=== PATIENT | male | born 1980 | race Caucasian/White ===

== ENCOUNTER 2020-04-19 10:00 | Emergency (ER) | payer MEDICAID ==
[~2020-04-19] VITALS: Ht 177.8 cm; Wt 70.5 kg
[2020-04-19] MEDS ORDERED: DOXYCYCLINE 100MG CAPSULE PO STA (10:42)
[2020-04-19] MEDS ORDERED: CefTRIAXone 1000mg IM Kit (w/lidocaine diluent) IM ONE (10:45)
[2020-04-19] MEDS ORDERED: DOXY100C43 PO (10:45)
[2020-04-19 11:46] VITALS: BP 126/82
== END 2020-04-19 11:48 | disposition home or self-care (01) ==
LOC: ER 10:01
DX: Z02.89 Encounter for other administrative examinations (principal); Z20.2 Contact with and (suspected) exposure to infections with a predominantly sexual mode of transmission; F17.200 Nicotine dependence, unspecified, uncomplicated; Z72.89 Other problems related to lifestyle; Z88.1 Allergy status to other antibiotic agents; Z79.2 Long term (current) use of antibiotics
CPT/HCPCS: 36415; 87491; 87591; 96372; 99283; J0696

== ENCOUNTER 2021-05-07 00:42 | Emergency (ER) | payer MEDICAID ==
[~2021-05-07] VITALS: Ht 177.8 cm; Wt 70.5 kg
[2021-05-07 00:48] VITALS: BP 116/77
[2021-05-07] MEDS ORDERED: DOXY-411 PO (01:52)
[2021-05-07] MEDS ORDERED: DOXYCYCLINE 100MG CAPSULE PO STA (01:52)
[2021-05-07] MEDS ORDERED: CEFTRIAXONE 500 MG VIAL IM ONE (01:55)
[2021-05-07] MEDS ORDERED: CefTRIAXone 1000mg IM Kit (w/lidocaine diluent) IM ONE ×2 (01:55)
== END 2021-05-07 02:07 | disposition home or self-care (01) ==
LOC: ER 00:42
DX: Z20.2 Contact with and (suspected) exposure to infections with a predominantly sexual mode of transmission (principal); R20.8 Other disturbances of skin sensation; Z72.89 Other problems related to lifestyle; Z88.1 Allergy status to other antibiotic agents; Z79.2 Long term (current) use of antibiotics
CPT/HCPCS: 96372; 99283; J0696

== ENCOUNTER 2023-11-24 19:28 | Emergency (ER) | payer MEDICAID ==
[~2023-11-24] VITALS: Ht 177.8 cm; Wt 66.2 kg
[2023-11-24] MEDS: TETanus/Pertussis (Acell)/Diphther VAC/PF (Tdap-Adult) 0.5ml syringe IMVAC ONE (20:45)
[2023-11-24] MEDS: LIDOcaine 1% W/epiNEPHrine 1:100,000 20ml vial SQ ONE (20:49)
[2023-11-24] MEDS ORDERED: CEPH-585 PO (21:13)
[2023-11-24 21:23] VITALS: BP 135/86; PULSE 79; RESP 18; TEMP 98.5; O2SAT 99
== END 2023-11-24 21:25 | disposition home or self-care (01) ==
LOC: ER 19:28
DX: S91.012A Laceration without foreign body, left ankle, initial encounter (principal); Z88.1 Allergy status to other antibiotic agents; Z72.89 Other problems related to lifestyle; X58.XXXA Exposure to other specified factors, initial encounter; Y93.89 Activity, other specified; Y92.89 Other specified places as the place of occurrence of the external cause; Y99.8 Other external cause status
CPT/HCPCS: 12001; 90471; 90715; 99283; A6449